=== PATIENT | male | born 1970 | race Caucasian/White ===

== ENCOUNTER → 2021-09-28 | Day surgery (SDC) | payer OTHER ==
[~2021-09-28] VITALS: Ht 170.2 cm; Wt 113.6 kg
[~2021-09-28] MED LIST: AMLO-186 PO; HYDROmorphone 2 MG/ML INJ. IVP PRN; IV RINGERS,LACTATED 1000ML 1,000 ML IV SCH; MORPHINE SULFATE 2 MG/ML INJ. IVP PRN; PROCHLORPERAZINE 10 MG/2 ML VIAL. IVP PRN; PROPOFOL 10 MG/ML (20ML) VIAL. IV ONE; fentaNYL PF VIAL 100 MCG/2 ML VIAL IVP PRN
[2021-09-28 06:36] VITALS: BP 159/84
--- NOTE | 2021-09-28 07:11 | PDOC2 ---
CONSULT Date of Consult Date of Consult DATE: 09/28/21 TIME: 07:08 Reason for Consult Reason for Consult: CRC screening History of Present Illness Reason for Visit: 51 yo Male seen in consultation with above. He has daily bowel movements without diarrhea, constipation, and/or melena/hematochezia. Weight and appetite are stable. No family history of colon cancer is present. No prior screenings have been performed. He otherwise is without additional complaints. Past Medical History Cardiovascular: HTN Past Surgical History Past Surgical History: Cholecystectomy, Tonsillectomy Family History Family History: No Significant Social History 1 pack per day ALCOHOL: occassional Current Medications Current Medications Current Medications Fentanyl Citrate (Fentanyl 2ml Vial) 25 mcg PRN Q5MIN PRN IVP MILD PAIN 1-3; Start 09/28/21 at 06:00; Stop 09/28/21 at 20:00 Fentanyl Citrate (Fentanyl 2ml Vial) 50 mcg PRN Q5MIN PRN IVP MODERATE PAIN 4- 6; Start 09/28/21 at 06:00; Stop 09/28/21 at 20:00 Morphine Sulfate (Morphine Sulfate) 1 mg PRN Q10MIN PRN IVP SEVERE PAIN 7-10; Start 09/28/21 at 06:00; Stop 09/28/21 at 20:00 Ringer's Solution 1,000 ml @ 30 mls/hr Q24H IV Last administered on 09/28/21at 06:35; Start 09/28/21 at 06:00; Stop 09/28/21 at 17:59 Hydromorphone HCl (Dilaudid) 0.5 mg PRN Q10MIN PRN IVP SEVERE PAIN 7-10, 2nd CHOICE; Start 09/28/21 at 06:00; Stop 09/28/21 at 20:00 Prochlorperazine Edisylate (Compazine) 5 mg PACU PRN PRN IVP NAUSEA, MRX1; Start 09/28/21 at 06:00; Stop 09/28/21 at 20:00 Propofol (Diprivan) 200 mg STK-MED ONCE IV ; Start 09/28/21 at 06:23; Stop 09/28/21 at 06:23; Status DC Active Scripts Active Reported Amlodipine Besylate 5 Mg Tablet 5 Mg PO DAILY Allergies Allergies: Coded Allergies: No Known Drug Allergies (Unverified , 09/28/21) Physical Exam General: Alert, Oriented X3 Lungs: Clear to auscultation Heart: Normal S1, Normal S2 Abdomen: Normal bowel sounds, Soft, No tenderness Vitals VITALS Vital Signs Date Time Temp Pulse Resp B/P (MAP) Pulse Ox O2 Delivery O2 Flow Rate FiO2 09/28/21 06:47 Room Air 09/28/21 06:36 97.7 72 14 98 97.7 Assessment/Plan Assessment/Plan Colorectal cancer screening- is recommended at this time. R/B discussed with patient who is willing to proceed. NAMRATA FERNÁNDEZ MD Sep 28, 2021 07:11
[2021-09-28 07:39] VITALS: BP 142/81
== END | disposition home or self-care (01) ==
LOC: ENDOS 06:12
PROVIDERS: ATTEND Internal Medicine Gastroenterology
DX: Z12.11 Encounter for screening for malignant neoplasm of colon (principal); K64.0 First degree hemorrhoids; K63.89 Other specified diseases of intestine; I10 Essential (primary) hypertension; G47.30 Sleep apnea, unspecified; Z87.891 Personal history of nicotine dependence; Z79.899 Other long term (current) drug therapy; Z90.49 Acquired absence of other specified parts of digestive tract; Z98.890 Other specified postprocedural states
CPT/HCPCS: 45378; J2704